=== PATIENT | female | born 1950 | race Caucasian/White ===

== ENCOUNTER 2020-11-21 13:39 | Emergency (ER) | payer MEDICARE, OTHER, SELFPAY ==
--- NOTE | ~2020-11-21 | CT_ITS ---
EXAMINATION: CT brain wo con DATE: 11/21/2020 14:35 INDICATION: Syncope. Head injury. TECHNIQUE: Computed tomography (CT) of the head was performed without intravenous contrast. The mA wa s adjusted according to patient size. Iterative reconstruction technique was employed. The dose-lengt h product was 832.33 mGy-cm. COMPARISON: None FINDINGS: There are scattered areas of low attenuation in the cerebral white matter. There is no intr acranial hemorrhage, acute infarction, or abnormal intracranial mass lesion. The ventricles are rm l in size. There is a right posterior scalp hematoma. There is mild mucosal thickening in the paranas al sinuses. There are likely changes of ocular lens replacement surgeries. The mastoid air cells are normal. IMPRESSION: 1. Mild nonspecific cerebral white matter disease, which likely represents chronic small vessel ische haider disease. Reviewed, dictated and finalized at location A. IMPRESSION: 1. Mild nonspecific cerebral white matter disease, which likely represents mental health aides teacher meme small vessel ischemic disease.
--- NOTE | ~2020-11-21 | XR_ITS ---
EXAMINATION: XR chest 1V portable DATE: 11/21/2020 14:06 INDICATION: Weakness. Fall. TECHNIQUE: A single frontal view of the chest was obtained. COMPARISON: None. FINDINGS: The chest demonstrates clear lungs without pneumonia, pleural effusion, or pneumothorax. Th e heart size is normal. There are changes of heart valve replacement. There are suture anchors in rig ht humeral head. IMPRESSION: 1. No acute cardiopulmonary disease. Reviewed, dictated and finalized at location A.
--- NOTE | ~2020-11-21 | CT_ITS ---
EXAMINATION: CT abdomen pelvis w con INDICATION: Abdominal pain TECHNIQUE: Computed tomographic images of the abdomen and pelvis were obtained after the administrati on of 100 cc of Omnipaque 350 intravenous contrast. The dose-length product (DLP) was 861.93 mGy-cm. Automated exposure control and iterative reconstruction technique were employed. COMPARISON: None available FINDINGS: Minimal dependent atelectasis is present in the lung bases. Cardiomegaly is noted. There is an approximately 6 cm liver laceration involving segments Bipin which extends to the liver hilum. Ther e appears to be active venous extravasation of contrast into the laceration. There is hemoperitoneum. A small sliding hiatal hernia is noted. The gallbladder is surgically absent. There is mild enlargem ent of the common bile duct and central intrahepatic ducts which is likely due to post cholecystectom y state. The spleen, pancreas, and adrenal glands are normal. The right kidney is unremarkable. The l eft kidney is absent. No pathologically enlarged abdominal or pelvic lymph nodes are identified. Ther e is no free intraperitoneal gas or evidence of bowel obstruction. There is severe lumbar spondylosis . Changes of posterior fusion are noted at L4-5. There is a small fat-containing umbilical hernia. IMPRESSION: 1. Liver laceration with hemoperitoneum and apparent hepatic venous injury, grade IV by CT criteria. Preparation for patient transfer are underway. These findings were discussed with Dr. Luis rivers DO in the Emergency Department at 1630 hours on 11/21/2020. Reviewed, dictated and finalized at location B. IMPRESSION: 1. Liver laceration with hemoperitoneum and apparent hepatic venous injury, gra de IV by CT criteria. Preparation for patient transfer are underway. These find ings were discussed with Dr. Luis Richardson DO in the Emergency Department at 1630 hours on 11/21/2020.
[2020-11-21 13:35] VITALS: BP 159/87; PULSE 108; RESP 12; TEMP 36.6; O2SAT 99
[2020-11-21 13:41] VITALS: PULSE 122
--- NOTE | 2020-11-21 13:44 | ECG_ITS ---
Measurements Intervals [place] Rate: 114 P: DC: 0 QRS: -14 QRSD: 94 T: 91 QT: 373 QTc: 514 Interpretive Statements ATRIAL FIBRILLATION WITH RAPID VENTRICULAR RESPONSE LOW QRS VOLTAGE IN PRECORDIAL LEADS CANNOT RULE OUT SEPTAL INFARCT, AGE INDETERMINATE BORDERLINE ST-T WAVE ABNORMALITY- HIGH LATERAL LEADS BASELINE ARTIFACT- II, III, AVR, AVL, AVF, V1-V6 ABNORMAL ECG Electronically Signed On 11-21-2020 13:53:05 CDT by Arian Dutta D.O.
--- NOTE | 2020-11-21 13:44 | ED.GENADULT ---
HPI - General Adult General Chief complaint: Syncope Stated complaint: SYNCOPE/DIZZY Source: RN notes reviewed History of Present Illness HPI narrative: Patient presents to emergency department from home via EMS for syncopal episode. Patient states that she had gotten out of her car and was walking into her house when she became dizzy and had a witnessed syncopal episode. Patient significant other states she was out for approximately 2 minutes and CPR was started by bystander as they did not know if the patient had a pulse when EMS arrived the patient was awake alert x3 in A. fib. Patient states she does have a history of atrial fibrillation is on anticoagulation. She is followed by cardiology at [facility] cardiology patient denies any fevers or chills she states her chest is sore but denies any chest pain prior to the syncopal episode shortness of breath abdominal pain nausea or vomiting patient states she had a syncopal episode approximately 2 weeks ago and was seen at that time at [facility] Related Data Home Medications Medication Instructions Recorded Confirmed atorvastatin 11/21/20 dofetilide mcg 11/21/20 furosemide See Rx Instructions .ROUTE .COMPLEX 11/21/20 losartan 11/21/20 methimazole 11/21/20 metoprolol succinate PO 11/21/20 montelukast mg 11/21/20 omeprazole 11/21/20 potassium chloride meq PO 11/21/20 temazepam mg 11/21/20 warfarin 11/21/20 Allergies Allergy/AdvReac Type Severity Reaction Status Date / Time prochlorperazine Allergy Agitated Verified 11/21/20 13:45 [From Compazine] codeine AdvReac Nausea and Verified 11/21/20 13:45 Vomiting Review of Systems Review of Systems: Narrative: Gen.: Denies fevers or chills ENT: Denies congestion Respiratory: Denies shortness of breath or cough CV: See HPI GI: Denies abdominal pain nausea, emesis or diarrhea Musculoskeletal: Denies back pain or muscle pain Neuro: Denies numbness, tingling, weakness or focal weakness Skin: Denies rash Except as documented, all other systems reviewed and negative COUNT INCLUDES THE [facility] Past Medical History Medical History (Updated 11/21/20 @ 17:35 by Luis Richardson DO) Atrial fibrillation Social History Social History (Updated 11/21/20 @ 13:46 by Luis Richardson DO) Smoking status: Never smoker Gender identity (if verbalized by the patient): Female Exam Narrative: Exam Narrative: APPEARANCE: No acute distress, nontoxic, resting in bed EYES: EOMI HEENT: Normocephalic, atraumatic, OMM RESPIRATORY: No respiratory distress Clear to auscultation bilaterally with no rhonchi wheezing or rales. CARDIOVASCULAR: Regular rate and rhythm without murmurs rubs or gallops. Chest: Turn palpation of bilateral anterior chest wall with no sign ecchymosis ABDOMINAL: Soft, nontender, nondistended, no rebound or guarding MUSCULOSKELETAl: Moves all extremities. No clubbing, cyanosis or edema. NEURO: Awake and alert. Following commands, speech normal, no focal deficits SKIN:: Warm, dry. No rashes lesions or abrasions PSYCHIATRIC: Normal affect/mood, Course Course Emergency Course: Called and discussed with Dr. Lewis for general surgery presentation work-up recommends at this time secondary to trauma patient be transferred to a tertiary care center Discussed with patient need for transfer request [place] at this time Discussed with Dr. Dobbs at [facility] excepts transfer Patient actually ordered vitamin K prior to having INR back INR came back at 1.4 will have hold vitamin K at this time Vital Signs Vital signs: Vital Signs Temperature 97.8 F 11/21/20 13:35 Pulse Rate 108 H 11/21/20 13:35 Respiratory Rate 12 11/21/20 13:35 Blood Pressure 159/87 H 11/21/20 13:35 Pulse Oximetry 99 11/21/20 13:35 Temperature 97.8 F 11/21/20 13:35 Pulse Rate 104 H 11/21/20 15:48 Respiratory Rate 20 11/21/20 15:48 Blood Pressure 132/63 11/21/20 15:48 Pulse Oximetry 98 11/21/20
[2020-11-21] MEDS: SODIUM CHLORIDE 0.9% IV 1,000 ML 999 ML IV CONT (13:45)
[2020-11-21 14:49] VITALS: BP 143/89; PULSE 115; RESP 19; O2SAT 98
[2020-11-21 14:58] LABS: Basophils Percent Auto 0.1 % (0.2-1.2); Eosinophils Percent Auto 0.1 % (0-4.4); Hematocrit 35.5 % (37.0-47.0); Immature Granulocyte Absolute 0.09 K/mm3 (0.00-0.031); Immature Granulocyte Percent A 0.6 % (0-0.5); Lymphocytes Absolute Auto 0.62 K/mm3 (0.9-3.2); Lymphocytes Percent Auto 4.3 % (18.3-44.2); Mean Corpuscular Hemoglobin 24.6 pg (26-34); Mean Corpuscular Volume 79.2 fl (80-100); Mean Platelet Volume 10.4 fl (7.4-10.4); Monocytes Absolute Auto 0.5 K/mm3 (0.1-0.6); Monocytes Percent Auto 3.5 % (2.6-8.5); Neutrophils Absolute Auto 13.2 K/mm3 (1.3-6.7); Neutrophils Percent Auto 91.4 % (45.5-73.1); Platelet Count Result 212 k/mm3 (150-375); Red Blood Count 4.48 M/mm3 (4.2-5.4); Red Cell Distribution Width 15.1 % (11.5-14.5); White Blood Count 14.5 K/mm3 (4.5-10.0)
[2020-11-21 15:00] VITALS: BP 127/82; PULSE 127
[2020-11-21] MEDS: dilTIAZem HCl INJ 25 MG/5 ML VIAL 5 MG IV PUSH (15:00)
[2020-11-21] MEDS: ACETAMINOPHEN 500 MG TABLET 1000 MG PO (15:01)
[2020-11-21 15:18] LABS: Alanine Aminotransferase 273 U/L (4-35); Albumin Level 4.1 g/dL (3.5-5.1); Alkaline Phosphatase 94 U/L (38-126); Anion Gap 7 mmol/L (8-16); Aspartate Amino Transferase 311 U/L (14-36); Bilirubin,Total 0.6 mg/dL (0.2-1.3); Blood Urea Nitrogen 15 mg/dL (7-17); Carbon Dioxide 25 mmol/L (22-30); Chloride 105 mmol/L (98-107); Estimated CRCL calculation 66 ml/min; Estimated Glomerular Filt Rate > 60; Glucose 174 mg/dL (65-105); Potassium 4.4 mmol/L (3.4-5.0); Sodium 137 mmol/L (137-145)
[2020-11-21 15:29] LABS: Troponin I 0.014 ng/mL (0.000-0.034)
[2020-11-21 15:48] VITALS: BP 132/63; PULSE 104; RESP 20; O2SAT 98
--- NOTE | 2020-11-21 16:21 | PC.NURSE ---
called adonis juarez, added on Lip [id number]
[2020-11-21 16:33] LABS: Lipase 38 U/L (23-300)
[2020-11-21 16:47] LABS: INR 1.4; Prothrombin Time 17.3 Seconds (11.1-14.7)
[2020-11-21 16:48] LABS: Partial Thromboplastin Time 43.9 SECONDS (22.3-36.8)
[2020-11-21 18:04] VITALS: BP 120/51; PULSE 83; RESP 16; O2SAT 98
[2020-11-21] MEDS: SODIUM CHLORIDE 0.9% IV 1,000 ML 125 ML IV CONT (18:12)
== END 2020-11-21 18:25 | disposition short-term general hospital (02) ==
PROVIDERS: Emergency Provider Emergency Medicine
DX: S36.113A Laceration of liver, unspecified degree, initial encounter (principal); S31.609A Unspecified open wound of abdominal wall, unspecified quadrant with penetration into peritoneal cavity, initial encounter; R55 Syncope and collapse; I48.91 Unspecified atrial fibrillation; Z79.01 Long term (current) use of anticoagulants; R90.82 White matter disease, unspecified; R94.31 Abnormal electrocardiogram [ECG] [EKG]; X58.XXXA Exposure to other specified factors, initial encounter
CPT/HCPCS: 36415; 70450; 71045; 74177; 80053; 83690; 84484; 85025; 85610; 85730; 86850; 86900; 86901; 93005; 96361; 96365; 96366; 99285; A9270; J3430; J7030; Q9967

== ENCOUNTER 2025-06-27 11:14 | Outpatient (CLI) | payer MEDICARE, OTHER, SELFPAY ==
--- NOTE | ~2025-06-27 | XR_ITS ---
EXAMINATION: XR chest 2V, 06/27/2025 12:08 .NET ARCHITECT HISTORY: PRE OP EXAMINATION; HX ASTHMA INSERTED PIG VALVE x 4 YRS COMPARISON: No comparisons available. Technique: 2 views obtained. Findings: The lungs are clear, no effusion. No pneumothorax. Heart is normal size. Mediastinal and hilar contours are within normal limits. Post sternotomy Impression: No acute cardiopulmonary abnormality. Reviewed, dictated and finalized at location P. .NET ARCHITECT Impression: No acute cardiopulmonary abnormality.
--- NOTE | 2025-06-27 11:46 | ECG_ITS ---
Test Date: 2025-06-27 11:56:56 Measurements Intervals [place] Rate: 62 P: -29 NC: 223 QRS: -68 QRSD: 155 T: 89 QT: 411 QTc: 420 Interpretive Statements SINUS RHYTHM WITH FIRST DEGREE AV BLOCK LEFT AXIS DEVIATION [QRS AXIS < -30] LEFT BUNDLE BRANCH BLOCK [120+ ms QRS DURATION, 80+ ms Q/S IN V1/V2, 85+ ms R IN I/aVL/V5/V6] ABNORMAL ECG No previous ECG available for comparison Electronically Signed On 06-27-2025 15:55:27 BUDGET OFFICER by Ramez Miller M.D.
[2025-06-27 11:49] LABS: Hematocrit 40.4 % (37.0-47.0); Hemoglobin 12.5 g/dL (12.0-15.0); Mean Corpuscular HGB Conc 30.9 g/dl (32-36); Mean Corpuscular Hemoglobin 24.2 pg (26-34); Mean Corpuscular Volume 78.1 fl (80-100); Platelet Count Result 183 k/mm3 (150-375); Red Blood Count 5.17 M/mm3 (4.2-5.4); White Blood Count 7.5 K/mm3 (4.5-10.0)
[2025-06-27 12:04] LABS: INR 2.9; Prothrombin Time 30.0 Seconds (11.1-14.7)
[2025-06-27 12:05] LABS: Partial Thromboplastin Time 48.0 Seconds (22.3-36.8)
[2025-06-27 12:10] LABS: Alanine Aminotransferase 29 U/L (6-35); Albumin Level 4.2 g/dL (3.5-5.1); Alkaline Phosphatase 65 U/L (38-126); Anion Gap 9 mmol/L (4-12); Aspartate Amino Transferase 26 U/L (14-36); Bilirubin,Total 1.0 mg/dL (0.2-1.3); Blood Urea Nitrogen 9 mg/dL (7-17); Calcium 9.7 mg/dL (8.4-10.2); Carbon Dioxide 27 mmol/L (22-30); Chloride 101 mmol/L (98-107); Estimated Glomerular Filt Rate > 60; Glucose 146 mg/dL (65-110); Potassium 3.9 mmol/L (3.4-5.0); Sodium 137 mmol/L (137-145); Total Protein 6.9 g/dL (6.3-8.2)
== END 2025-06-27 11:15 | disposition home or self-care (01) ==
PROVIDERS: Visit Provider Anesthesiology Pain Medicine
DX: D68.9 Coagulation defect, unspecified (principal); Z01.818 Encounter for other preprocedural examination
CPT/HCPCS: 36415; 71046; 80053; 85027; 85610; 85730; 93005

== ENCOUNTER 2025-07-04 06:03 | Day surgery (SDC) | payer MEDICARE, OTHER, SELFPAY ==
[2025-06-28 13:28] VITALS: BMI 28.5
--- NOTE | 2025-06-28 13:56 | PC.NURSE ---
1200; CALLED DR ARMSTRONG'S OFFICE AND LEFT A MESSAGE FOR JESSICA/FEMI REGARDING SURGICAL AND CARDIAC CLEARANCE.
--- NOTE | 2025-07-03 10:08 | PC.NURSE ---
Spoke with Jennifer at Dr. Chance's office on 06/29/25 re need for cardiac clearance. Jennifer said she had spoke with pt's travel manager office and that they would be faxing clearance. Checked for cardiac clearance this AM, 07/03/25, in preparation for tomorrow's procedure and not in [facility]. Called Jennifer and she said she would call travel manager's office to have clearance sent.
--- NOTE | 2025-07-04 06:20 | WPDHPUPDATE1 ---
History and Physical Update Update Date/Time: 07/04/25 06:20 History and Physical has been reviewed, including an updated exam of the patient. There are NO changes in the patient's condition. Risks, benefits, and alternatives have been discussed and questions answered. Patient agrees to proceed with procedure.
--- NOTE | 2025-07-04 06:21 | W.PM.PROC2 ---
Procedure Note - Detailed Date of Procedure 07/04/25 Pre-op Diagnosis Vertebrogenic Low Back Pain Post-op Diagnosis Same Procedure Performed Percutaneous transpedicular intraosseous basivertebral nerve thermal radiofrequency ablation (Intracept procedure) at L1, L2, L3, S1 under fluoroscopic guidance. Surgeon Gabo Chance MD National Facilities Manager None. Anesthesia General (GETA] in the [prone] position with infiltration of local anesthetic. 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 They are significantly limited in their daily and/or work-related activities as a result, including sitting, standing, lifting/carrying and sleeping, with failure to respond to and/or tolerate extensive efforts at more conservative management (i.e. oral and topical analgesics including NSAIDs, acetaminophen and opioids, Physical Therapy and modalities, time/rest, interventional procedures/corticosteroid injections) for greater than 6 months prior to today's procedure establishing medical necessity for this well-studied and FDA-approved pain-relieving procedure. INFORMED CONSENT: Procedure was discussed in detail with the patient at a previous visit and at the time of surgery. During this discussion, the risks, benefits, and alternatives to the procedure, including doing nothing, were thoroughly described to the patient, who expressed explicit understanding and consent to proceed. Specific risks discussed with the patient included, but were not limited to the risk of serious local or systemic infection, skin burn/scarring, major or minor bleeding/bruising, allergic reaction to medications or materials, inadvertent lung or other organ injury, new or worsening spinal fracture, inadvertent thermal or mechanical nerve or spinal cord injury resulting in increased pain, weakness, numbness or loss of bowel or bladder control, the need for repeat or additional surgery, inadvertent dural puncture resulting in acute or chronic CSF leak and post-dural puncture headache, failure to treat pain, and risks associated with general anesthesia in the prone position including eye, dental, joint, nerve, spine or soft tissue injury/pain related to positioning, heart attack, respiratory failure, aspiration, pneumonia, DVT/PE or thrombosis, hemorrhagic or ischemic stroke, hypoxia, hypo- or hypertension, seizure, coma and . Patient understands these risks and agrees that the opportunity for benefit outweighs the potential risk of harm. Procedure specific informed consent form was read, reviewed, signed by the patient and surgeon and witnessed in the pre-operative area. All pertinent questions were asked and answered to the patient's satisfaction. Surgical site was pre-treated with chlorhexidine wipes. All materials required for the procedure were available and site and side of procedure was marked prior to procedure start. Appropriate timeout was conducted by all participants in the OR (patient's ID, procedure to be performed, procedure site and side, allergies and appropriate medications including pre-operative antibiotics were verified) prior to incision. PROCEDURE IN DETAIL: After full informed consent and adequate IV access was obtained without difficulty; the patient was escorted to the procedural suite. ASA standard monitors were applied and utilized throughout the case. Prophylactic antibiotics were administered prior to procedure start. GETA was initiated without difficulty or event. Eyes were protected. Patient was converted to the prone position in optimal flexion using pillows under the abdomen, hips and ankles. Pressure points were padded, cervical spine and joints were placed in neutral position. Eyes, breasts and genitals were evaluated and protected as appropriate. The thoracolumbar spine to the sacrum was prepared in the usual manner using alcohol scrub followed by broad application of ChloraPrep, and allowed to dry completely for over 3 minutes. Surgical site and C-arm was sterilely draped in the typical fashion. Aseptic technique and strict fluoroscopic guidance was utilized throughout. Fluoroscope was moved into position to visualize the vertebral bodies of interest in the AP and lateral plane, obtaining true linear projections of the endplates at each level, and was rotated in the ipsilateral oblique view approximately 35 degrees from true AP to visualize the vertebrae with respective ipsilateral facet joints visualized bisecting the superior disk space at the midpoint of the vertebral body. The superolateral border of the pedicle of each level treated was identified. After adequate general anesthesia was confirmed, the skin entry point was located and infiltrated with an adequate amount of a 1:1 admixture of 0.5% preservative free bupivacaine and 2.0% preservative-free lidocaine using a 27 gauge 1.5-inch hypodermic needle after negative aspiration for blood or bodily fluid. Appropriate introducer cannula trajectory was identified in the AP, oblique and lateral views, and local anesthesia was extended to periosteum in a similar fashion at each level treated using a 3.5 inch, 22-gauge Quincke spinal needle. A stab skin decision was made with a #11 scalpel blade and an 8-gauge introducer cannula with beveled tip was then introduced through the skin, subcutaneous tissue and paraspinal muscle until contact was made with the bony surface of the pedicle at the target level. Appropriate position was confirmed in both the AP and lateral views. Using a 24-ounce surgical mallet, the trocar was advanced through the right pedicle to the posterior aspect of the vertebral body using a combination of AP and lateral views to ensure appropriate travel through the pedicle without breach of its medial wall or entry into the epidural/neuroforaminal space. Once the trocar had entered the posterior aspect of the S1 vertebral body, the trocar was removed from the cannula and the curved cannula assembly was inserted followed by replacement of the original straight stylette with the Nitinol J ? stylette without difficulty. The wingnut on the device was rotated counterclockwise to its endpoint permitting excursion of the J ? stylette. The curved cannula assembly was then advanced under intermittent fluoroscopic guidance, using the surgical mallet, in 1 to 2 mm increments with observed travel anteriorly and medially through the vertebral body in both the AP and lateral views. When necessary, the J-stylette was intermittently removed and replaced with the straight stylette during advancement to reach the basivertebral nerve target near the center point of the vertebral body. Target was reached when the tip of the stylette was noted to be a minimum of 1 cm anterior to the posterior wall and approximately 30 to 50% of the posterior to anterior diameter of the targeted vertebral body and at the midpoint of the distance between the superior and inferior endplates, with tip of the stylette crossing midline as represented by the spinous process in the carefully aligned AP projection. J-stylette was then removed and the bipolar radiofrequency probe was connected to the generator and inserted into the introducer cannula until the proximal and distal electrodes straddled the midpoint of the vertebral body. The wingnut was then rotated clockwise to retract the PEEK sleeve and expose the proximal electrode on the radiofrequency probe. The basivertebral nerve was then ablated through activation of the probe and generator. At each level treated, ablation was performed at 85 degrees centigrade for 15 minutes using [facility]'s RFG standard intraosseous ablation algorithm while simultaneously monitoring for any sign of motor or sensory nerve stimulation. While ablative lesioning was progressing to completion at the initial level, the fluoroscope was adjusted to successively visualize the target of entry at the superolateral aspect of the pedicle at each additional level treated, (L1, L2, L3), with each vertebral body subsequently and sequentially accessed and target nerve ablated in a similar manner modified only to accommodate for specific level, location and anatomical variation, alternating the site and side of entry to facilitate cannula placement. This was achieved in all cases without difficulty. Location of each entry point, final cannula and probe position was documented by fluoroscopy in the AP and lateral views with respective images recorded in the patient's chart. In all cases, once intraosseous access was obtained, needle tip remained intraosseous without violation of the pedicular wall, vertebral wall, neuroforamen and/or spinal canal. Once all ablations were complete, instruments were removed from the vertebral bodies without difficulty under direct visualization and fluoroscopic guidance. Pressure was held at each entry site until hemostasis was confirmed. Skin was cleaned with alcohol -soaked gauze and dried with a sterile towel. Surgical wounds were then closed with mastisol and Steri-Strips placed in a crisscrossing fashion and covered with a sterile Telfa and Tegaderm dressing. The patient was returned to the supine position and anesthesia was reversed without difficulty or event. The patient tolerated the procedure well with no evidence of complication. Patient was transported to the recovery room where they were monitored for an appropriate period of time prior to discharge. During this time, the patient demonstrated no evidence of new neurologic symptom or injury, uncontrolled pain, postsurgical or post anesthetic complication. The patient was eventually discharged with both written and verbal instructions for appropriate wound care and activity restriction and with instructions to contact the office or report directly to the emergency department if no immediate response or if after hours with any signs of urgent or emergent complication including but not limited to excessive discharge or bleeding, new focal or diffuse neurologic weakness, numbness or other sensory change in the upper or lower extremities, severe headaches, intractable nausea/vomiting, fevers, chills, night sweats, increasing pain or loss of bowel or bladder control. Patient will otherwise follow-up in person at the clinic in 7 to 10 days for wound check and reevaluation. COMPLICATIONS: None. COMMENTS: None. IV FLUIDS: On Chart. EBL: 10 ml. DRAINS: None. PACKING: None. SPECIMEN: None. Pathology None sent Complications No immediate complications Condition Stable Disposition PACU [facility] Billing Surgery - Charge Forward: Surgery Billing
[2025-07-04 06:22] VITALS: BP 162/69; PULSE 65; RESP 15; TEMP 37.1; O2SAT 98
--- NOTE | 2025-07-04 07:31 | SUR.PREOP ---
Dr Batres reviewed cardiac clearance sent by pt's outside nursing informatics clinical analyst. History discussed with Dr. Chance. Case canceled. IV discontinued.
== END 2025-07-04 07:50 | disposition home or self-care (01) ==
PROVIDERS: Visit Provider Anesthesiology Pain Medicine
DX: M54.51 Vertebrogenic low back pain (principal); Z53.8 Procedure and treatment not carried out for other reasons